=== PATIENT | male | born 1990 | race Caucasian/White ===

== ENCOUNTER 2017-06-05 09:38 | Emergency (ER) | payer SELFPAY ==
[~2017-06-05] VITALS: Ht 177.8 cm; Wt 113.5 kg
[2017-06-05 09:41] VITALS: BP 173/79; PULSE 99; RESP 16; TEMP 98.2; O2SAT 99
--- NOTE | 2017-06-05 10:15 | PD ---
HPI Chief Complaint: Injury Time Seen by Provider: 10:07 Travel History International Travel<30 days: No Contact w/Intl Traveler<30days: No Traveled to known affect area: No History of Present Illness HPI This patient complains of ankle sprain. Duration 12 hours. Severity is mild to moderate. He twisted his right ankle last night. He has history of plate and screws in that right ankle from prior fracture many years ago. He is worried about the hardware being displaced. PFSH Past Medical History Deep Vein Thrombosis: Yes Tetanus Vaccination: < 5 Years Social History Alcohol Use: No Tobacco Use: Yes Substance Use: No Allergies-Medications (Allergen,Severity, Reaction): Coded Allergies: No Known Allergies (Verified Allergy, Unknown, 06/05/17) Reported Meds & Prescriptions Reported Meds & Active Scripts Active No Active Prescriptions or Reported Medications Review of Systems General / Constitutional: No: Fever Eyes: No: Visual changes HENT: No: Headaches Cardiovascular: No: Chest Pain or Discomfort Respiratory: No: Shortness of Breath Gastrointestinal: No: Abdominal Pain Genitourinary: No: Dysuria Musculoskeletal: Positive: Arthralgias, Pain Skin: No Rash Neurologic: No: Weakness Psychiatric: No: Depression Endocrine: No: Polydipsia Hematologic/Lymphatic: No: Easy Bruising Physical Exam Narrative SKIN: Focused skin assessment reveals no rash or ulcers. Skin is warm and dry. Palpation shows no induration or nodules. Psych: Normal mood and affect. Normal insight and judgment. Right ankle: Has old well-healed surgical scarring over the fibula. There is no tenderness bruising or swelling there. Joint is stable. Good range of motion Data Data Last Documented VS Vital Signs Date Time Temp Pulse Resp B/P (MAP) Pulse Ox O2 Delivery O2 Flow Rate FiO2 06/05/17 09:58 19 06/05/17 09:41 98.2 99 173/79 (110) 99 Orders Orders Ankle, Complete ([id number]) (06/05/17 ) [facility] Medical Decision Making Medical Screen Exam Complete: Yes Emergency Medical Condition: Yes Medical Record Reviewed: Yes Differential Diagnosis Ankle fracture, ankle sprain, dislocation Narrative Course I have reviewed the patient's electronic medical record. I reviewed his right ankle x-rays which show the hardware in position but no new acute injury Supportive care discussed Diagnosis Primary Impression: Right ankle sprain Qualified Codes: S93.431A - Sprain of tibiofibular ligament of right ankle, initial encounter Additional Instructions: The patient was advised to follow up with their physician and return if they worsen. Med/Other Pt SpecificInfo: Other Scripts No Active Prescriptions or Reported Meds Disposition: 01 DISCHARGE HOME Condition: Stable Antoine Mtz MD Jun 05, 2017 10:15
--- NOTE | 2017-06-05 10:52 | RADRPT ---
EXAM DATE/TIME: 06/05/2017 10:40 [facility] COMPARISON: No previous studies available for comparison. INDICATIONS : Right ankle pain after falling and twisting ankle last night. MEDICAL HISTORY : Smoker. Previous fracture. SURGICAL HISTORY : ORIF of the right ankle. ENCOUNTER: Initial ACUITY: 2 days PAIN SCORE: 9/10 LOCATION: Right lateral ankle with pain that radiates up the leg. FINDINGS: There is no acute fracture or subluxation of the right ankle. 3 mm old ossific fragment seen in the r egion of the deltoid ligament. Patient has had previous screw and plate fixation of the distal fibula which appears healed in normal alignment. 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 No perceptible soft tissue swelling. CONCLUSION: Evidence of old ankle trauma. No acute abnormality demonstrated. Shaheen Vazquez MD on June 05, 2017 at 10:49 Board Certified Radiologist. This report was verified electronically.
[2017-06-05 12:10] VITALS: BP 173/79
== END 2017-06-05 12:11 | disposition home or self-care (01) ==
LOC: NEPD 09:38
DX: S93.401A Sprain of unspecified ligament of right ankle, initial encounter (principal); X50.1XXA Overexertion from prolonged static or awkward postures, initial encounter; Z72.0 Tobacco use; Z86.718 Personal history of other venous thrombosis and embolism
CPT/HCPCS: 73610; 99283